=== PATIENT | male | born 1980 | race Caucasian/White ===

== ENCOUNTER 2025-05-22 16:18 | Emergency (ER) | payer OTHER, SELFPAY ==
--- NOTE | ~2025-05-22 | CT_ITS ---
EXAMINATION: CT HEAD WITHOUT CONTRAST CLINICAL INFORMATION: Head trauma, struck by metal COMPARISON: None available. TECHNIQUE: Contiguous axial imaging was performed from the skull base to vertex without intravenous administration of contrast. This CT examination was performed using dose optimization techniques as appropriate, variously including the following: *Automated exposure control *Adjustment of mA and/or kV according to patient size (this includes techniques or standardized protocols for targeted exams where dose is matched to indication/reason for exam; i.e. extremities or head) *Use of iterative reconstruction technique DLP: 675 mGY*cm FINDINGS: There is no acute ischemic change. There is no intracranial hemorrhage. There is no mass-effect or midline shift. Basal cisterns and ventricles are within normal limits for age/cerebral volume. Orbits are symmetrical and unremarkable. Paranasal sinuses and mastoid air cells are pneumatized. There are no bony abnormalities. CT/CT head/brain wo IV con IMPRESSION: No acute intracranial abnormality. Electronically signed by: Avi Smith MD 05/22/2025 05:45 PM EDT
--- NOTE | ~2025-05-22 | CT_ITS ---
EXAMINATION: CT CERVICAL SPINE WITHOUT CONTRAST CLINICAL INFORMATION: Neck pain after head trauma, struck head on metal COMPARISON: None available. TECHNIQUE: Axial imaging was performed from the base of the skull through T2 without IV contrast. Coronal and sagittal reformatted images were generated from the original axial data set. ALARA: The examination used one or more of the following radiation dose reduction techniques: Automated exposure control, iterative reconstruction, and/or adjustment of mA and/or KV. DLP: 365 mGY*cm FINDINGS: Multilevel degenerative changes are present with mild to moderate disc space narrowing most pronounced in the midthoracic spine. There are also endplate and uncovertebral osteophytes with foraminal narrowing at C5-6 and C6-7.. No fracture lines are evident. There is no prevertebral soft tissue edema. CT/CT cervical spine wo IV con IMPRESSION: No acute abnormality. Multilevel degenerative disc disease most advanced at C5-6 and C6-7 where osteophytes narrow neural foramina. Electronically signed by: Avi Smith MD 05/22/2025 05:49 PM EDT
[2025-05-22 16:22] VITALS: BP 150/89; PULSE 62; RESP 18; TEMP 36.6; O2SAT 98; BMI 24.2
--- NOTE | 2025-05-22 16:29 | ED_ITS ---
HPI - Head Injury General Chief complaint: Head Injury Stated complaint: Head inj, Bleeding, dizzy/ sleepy, @ work Time Seen by Provider: 05/22/25 18:12 Source: patient Limitations: no limitations History of Present Illness ED Provider: Shanta Swan PA-C HPI Narrative: 45-year-old male presents with scalp laceration. 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 Unclear if his tetanus is up-to-date. The patient does not use a blood thinner. Related Data Allergies Allergy/AdvReac Type Severity Reaction Status Date / Time sulfamethoxazole (From Allergy Hives Verified 05/22/25 16:24 Bactrim) trimethoprim (From Bactrim) Allergy Hives Verified 05/22/25 16:24 Review of Systems Review of Systems: Yes all other systems are reviewed and are negative Constitutional: Constitutional: Denies fatigue, Denies fever(s) and Denies headache(s) ENT: Denies dizziness and Denies headache(s) Cardiovascular: Cardiovascular: Denies chest pain and Denies dyspnea Respiratory: Respiratory: Denies dyspnea Gastrointestinal: Gastrointestinal: Denies nausea and Denies vomiting Neurologic: Denies dizziness and Denies headache(s) Endocrine: Endocrine: Denies fatigue PMF Past Medical History Attestation statement: The following information was validated with the patient. Social History Social History Do you have a plan to hurt others: No Plan Physical Exam Vital Signs: Vital Signs: Last Vital Signs Temp 98 F 05/22/25 16:22 Pulse 62 05/22/25 16:22 Resp 18 05/22/25 16:22 BP 150/89 H 05/22/25 16:22 Pulse Ox 98 05/22/25 16:22 O2 Del Method Room Air 05/22/25 16:22 BMI result Body Mass Index 24.2 Const: Other: Alert well-appearing, approximately 4 cm linear superficial laceration noted superior scalp, no longer bleeding Orientation/consciousness: patient oriented x3 Resp: Effort & Inspection: normal respiratory effort Cardio: Other: Normal peripheral perfusion Skin: Other: Warm dry no rash Neuro: General: patient oriented x3, gait normal, no focal motor deficits and CN's II-XI intact bilaterally Psych: Other: Calm cooperative Course Course Course Narrative: This is a Rapid Medical Examination (RME) performed by Rin Rosario PA-C in triage. Full HPI, ROS, assessment and treatment plan per primary provider in the Main ED. Hx: 45 yo M brought to ED from work [facility] for eval of head injury sustained at work [employer]. reports walking into a metal rack approx 1 hr [employer]. no LOC. no thinners. reports feeling fatigued, eyes feel heavy . unknown tetanus status. PE/vitals: 1.5 linear lac to top of head, bleeding controlled, dressing applied in triage. Plan: lac repair. tdap booster. CT Medications Administered Discontinued Medications Generic Name Dose Route Start Last Admin Trade Name Freq PRN Reason Stop Dose Admin Diphtheria/Tetanus/Acell Pertussis 0.5 ml 05/22/25 16:25 05/22/25 20:22 Diphth,Pertus(Acell),Tet Adult 0.5 Ml Syringe IM 05/22/25 16:26 0.5 ml .ONCE ONE Administration Lidocaine/Epinephrine 10 ml 05/22/25 18:13 05/22/25 20:24 Lidocaine Hcl 1%/Epi 1:100,000 10 Ml Vial INFILTRATI 05/22/25 18:14 10 ml ONCE ONE Administration Medical Decision Making Medical Decision Making MDM Narrative: 45-year-old male presents with scalp laceration. 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 Unclear if his tetanus is up-to-date. The patient does not use a blood thinner. No chronic issues History: Per patient I have considered the following differential diagnoses: Contusion, laceration, hematoma, skull fracture, intracranial hemorrhage Plan: The laceration will require simple repair, given the mechanism of injury, unclear why imaging was ordered from triage. I have independently reviewed the following tests: CT brain: CT/CT head/brain wo IV con IMPRESSION: No acute intracranial abnormality. CT cervical spine: CT/CT cervical spine wo IV con IMPRESSION: No acute abnormality. Multilevel degenerative disc disease most advanced at C5-6 and C6-7 where osteophytes narrow neural foramina. Procedures Laceration Laceration 1: Site: scalp Size (cm): 4 Description: linear Depth: simple, single layer Local Anesthetic: lidocaine 1% and with epi Amount of anesthesia used (mL): 3 Pre-repair: irrigated extensively Size (cm): other (Anabella) Number of sutures: 5 (Anabella) Technique: simple, interrupted Discharge Plan Discharge Clinical Impression: Laceration of scalp Patient Disposition: Home, Self-Care Instructions: Laceration (ED) Additional Instructions: CT scan of your brain and cervical spine were normal, you did not sustain any additional injuries beyond the scalp laceration. Five anabella were used to repair the laceration. They can be removed in 7-10 days. Your tetanus vaccine was updated, it is valid for 10 years. Follow up with primary care as needed. Stand Alone Forms: Work/School Release Print Language: [place] Citizen
[2025-05-22] MEDS: Diphth,Pertus(ACell),Tet Adult 0.5 ML SYRINGE IM (20:22)
[2025-05-22] MEDS: Lidocaine HCl 1%/Epi 1:100,000 10 ML VIAL INFILTRATI (20:24)
--- OUTSIDE RECORDS SUMMARY | 2025-05-22 20:42 | XMS_ITS | Clinical Summary ---
Author Organization [facility] Address [address] [place] [phone] Phone Care Team Providers Care Cottage Attendant Name Role Phone Pcp, Not Required Primary Care Provider Unavaila ble Social History Tobacco Use Types Packs/Day Years Used Date Smoking Tobacco: Never Assessed Education Answer Date Recorded Are you interested in more education? Not on sandy e 01/29/2023 Are you concerned about learning? Not on file 01/29/2023 No 01/29/2023 No 01/29/2023 Digital Access Answer Date Recorded No 02/27/2023 No 02/27/2023 No 02/27/2023 Reliable internet access at home? Not on file 02/27/2023 Device with a working camera? Not on file Sex and Gender Information Value Date Recorded Sex Assigned at Not on file Legal Sex Male 4:04 PM EST Gender Identity Not on file Sexual Orientation Not on file Plan of Treatment Health Maintenance Due Date Last Done Comments LIPID PANEL 1982 DEPRESSION SCREENING 1994 SMOKING Hx and SMOKELESS TOBACCO SCREENING 1995 Adult Td,Tdap Booster 03/31/2023 03/31/2013 , 05/20/2006 COVID-19 VACCINE (2023-2 5 season) 2024 PNEUMOCOCCAL VACCINES (0-49 years) Aged Out 11/18/2017 No longer eligible b ased on patient's age to complete this topic HEPATITIS C SCREENING Completed 12/03/2020 HIV ONE-TIME SCREENING (18-6 5 YEARS) Completed 12/03/2020 HEPATITIS A VACCINES Aged Out No long er eligible based on patient's age to complete this topic HIB VACCINES Aged Out No longer eligi ble based on patient's age to complete this topic MENINGOCOCCAL VACCINES (ACWY) Aged Out No longer eligible based on patient's age to complete this topic MENINGOCOCCAL VACCINES (B) Aged Out N o longer eligible based on patient's age to complete this topic Medical Devices Not on file Procedures Procedure Name Priority Date/Time Associated Diagnosis Comments EXTERNALLY RESULTED OTHER LABS Routine 12/03/2020 12:15 PM EST from Last 3 Months or Most Recently Relevant to Health Maintenance Results * EXTERNALLY RESULTED OTHER LABS (12/03/2020 12:15 PM EST) CMV antibody, IgG - External Positive EBV - VCA antibody, IgM - External Negative EBV - VCA antibody, IgG - External Positive HBSAB - EXTERNAL Reactive HBSAG - EXTERNAL Neg HBV CORE AB(S) - EXTERNAL Non Reactive HCV AB - EXTERNAL Non Reactive HIV 1/2 AG/AG - EXTERNAL Non Reactive RPR - External Non Reactive 12/03/2020 12:1 5 PM EST us Historical Provider LAB BLOOD ORDERABLES Francisca l Result from Last 3 Months or Most Recently Relevant to Health Maintenance Care Teams Cottage Attendant Relationship Specialty Start Date End Date Pcp, Not Required [address] [place] [id number] PCP - General 11/26/20 Additional Source Comments The information contained in this document represents components of the legal health record. It is not the complete legal health record.[facility]
--- OUTSIDE RECORDS SUMMARY | 2025-05-22 20:42 | XMS_ITS | Clinical Summary ---
Author Organization [facility] Address [address] [address] Care Team Providers Care Shipping And Receiving Assistant Name Role Phone Unavailable Primary Care Provider Unavailabl e Social History Tobacco Use Types Packs/Day Years Used Date Smoking Tobacco: Never Assessed Sex and Gender Information Value Date Recorded Sex Assigned at Not on file Legal Sex Male 8:16 AM EST Gender Identity Not on file Sexual Orientation Not on file Plan of Treatment Health Maintenance Due Date Last Done Comments Hepatitis B Vaccine (1 of 3 - 19+ 3-dose series) 2001 Pneumococcal Vaccine: Peds ( 0 to 5 Years) and At-Risk Patients (6 to 49 Years) (2 of 2 - PCV) 11/18/2018 11/18/2017, 11/18/2017 Influenza Vaccine (#1) 2025 Pneumococcal Vaccine: 50+ Years Discontinued 8, 11/18/2017 Insurance [address] [place] [id number] [facility] Transplant Program ATTN: [place] [id number]
--- OUTSIDE RECORDS SUMMARY | 2025-05-22 20:42 | XMS_ITS ---
Author Name [facility] Organization Unknown Care Team Organization Name Specialty Phone Email Start Date End Da amaury [facility] Primary Care 08/11/2022 4
[2025-05-22 20:49] VITALS: BP 150/89; PULSE 62; RESP 18; TEMP 36.6; O2SAT 98
== END 2025-05-22 20:49 | disposition home or self-care (01) ==
LOC: HO.ED 20:40
PROVIDERS: Emergency Provider Emergency Medicine
DX: S01.01XA Laceration without foreign body of scalp, initial encounter (principal); W22.8XXA Striking against or struck by other objects, initial encounter; Y93.89 Activity, other specified; Y92.9 Unspecified place or not applicable; Y99.9 Unspecified external cause status; M54.2 Cervicalgia; Z23 Encounter for immunization
CPT/HCPCS: 12002; 70450; 72125; 90471; 90715; 99282; 99284; J2004

== ENCOUNTER → 2025-05-22 16:24 | Outpatient (BNV) | payer OTHER, SELFPAY | PROVIDERS: Visit Provider Radiology Diagnostic Radiology | DX: M50.322 Other cervical disc degeneration at C5-C6 level (principal); S09.90XA Unspecified injury of head, initial encounter | CPT/HCPCS: 70450; 72125 ==

== ENCOUNTER → 2025-06-05 11:16 | Outpatient (BNVA) | payer OTHER, SELFPAY | PROVIDERS: Visit Provider Physician Assistant Medical | DX: S01.01XA Laceration without foreign body of scalp, initial encounter (principal); W22.09XA Striking against other stationary object, initial encounter; Z48.02 Encounter for removal of sutures; Z02.79 Encounter for issue of other medical certificate | CPT/HCPCS: 99202; 99212 ==